=== PATIENT | male | born 1955 | race Caucasian/White ===

== ENCOUNTER 2019-08-26 18:48 | Emergency (ER) | payer MEDICARE, SELFPAY ==
--- NOTE | ~2019-08-26 | XR_ITS ---
XR knee RT 3V 08/26/2019 19:58 Indication: Recent right knee surgery on 08/06/2019. Right knee pain. Recent opening of surgical wound . Procedure: 3 views right knee Comparison: Comparison to multiple prior studies sequentially, with oldest reviewed study dated 02/03. Findings: There is a right total knee arthroplasty. Prosthesis appears to be well seated. No acute fr acture or traumatic malalignment. There is soft tissue gas in the suprapatellar and patellofemoral co mpartment regions. Extensive atherosclerosis. Impression: 1: No acute fracture. 2: Soft tissue gas suprapatellar and patellofemoral spaces, possibly postsurgical versus cellulitis i n the appropriate clinical setting. Clinically correlate. Reviewed, dictated and finalized at location A. Impression: 1: No acute fracture. 2: Soft tissue gas suprapatellar and patellofemoral spaces, possibly postsurgic al versus cellulitis in the appropriate clinical setting. Clinically correlate.
[2019-08-26 19:07] VITALS: BP 125/74; PULSE 108; RESP 20; TEMP 36.8; O2SAT 96
--- NOTE | 2019-08-26 19:20 | ED.EXTPRO ---
HPI - Extremity Problem General Chief complaint: Extremity Problem,Nontraumatic Stated complaint: rt knee pain Time Seen by Provider: 08/26/19 19:20 Source: patient Mode of arrival: ambulatory Limitations: no limitations History of Present Illness HPI Narrative: 63-year-old man comes in today complaining of pop and pain in his right knee on standing this evening. Patient states that who is dehisced right TKA wound is now even wider. It began to bleed after he felt a pop this morning. He states the pain is gotten better throughout the day and is able to bear some weight. He has some long-standing decreased sensation in his right distal extremity due to lumbar radiculopathy and states he has no new pain or numbness or weakness in his right lower leg. MD Complaint: joint paint Onset (ago): hour(s) (5) Pain Consistency: constant Location: right Quality: sharp Radiation: none Relieving factors: nothing Exacerbating factors: range of motion and weight bearing Associated symptoms: denies other symptoms Related Data Home Medications Medication Instructions Recorded Confirmed albuterol sulfate 90 mcg/actuation 1 puff INHALATION Q4H PRN 03/22/19 08/26/19 aerosol inhaler fluticasone furoate 100 1 inhalation INHALATION DAILY 03/22/19 08/26/19 mcg-vilanterol 25 mcg/dose inhalation powder prednisone 5 mg tablet 5 mg PO DAILY 03/22/19 08/26/19 Keflex 500 mg BYMOUTH BID 08/26/19 08/26/19 Allergies Allergy/AdvReac Type Severity Reaction Status Date / Time No Known Allergies Allergy Unverified 03/22/19 09:53 Review of Systems Constitutional: Constitutional: Denies chills, Denies fatigue, Denies fever(s) and Denies weakness ENT: Denies dysphagia, Denies nasal congestion and Denies sore throat Cardiovascular: Cardiovascular: Denies chest pain and Denies radiating jaw, neck or arm pain Respiratory: Respiratory: Denies cough, Denies dyspnea and Denies wheezing Gastrointestinal: Gastrointestinal: Denies abdominal pain and Denies vomiting Musculoskeletal: Musculoskeletal: Reports as per HPI and Reports arthralgias Integumentary/Breasts: Skin/Breast: Denies pruritus, Denies erythema and Denies rash Comments: Dehisced anterior TKA wound Neurologic: Denies vertigo, Denies dizziness, Denies syncope and Denies focal weakness Psychiatric: Psychiatric: Denies anxiety and Denies depression Hematologic/Lymphatic: Hematologic/Lymphatic: Denies easy bleeding and Denies easy bruising Allergic/Immunologic: Allergic/Immunologic: Denies lip swelling, Denies throat swelling, Denies tongue swelling and Denies wheezing [facility] Past Medical History Medical History (Updated 08/26/19 @ 20:44 by Sergio Angelo MD) Cigarette nicotine dependence COPD (chronic obstructive pulmonary disease) History of tetanus, diphtheria, and acellular pertussis booster vaccination (Tdap) (~02/19/18) Overweight Rheumatoid arthritis Surgical History Surgical History (Updated 08/26/19 @ 20:44 by Sergio Angelo MD) History of carpal tunnel surgery Bilateral 2017 History of cataract surgery Left Eye History of knee surgery Orthoscopic Left Knee. Righ Knee x2. History of left hip replacement 04-19-2018 Social History Social History Years smoked: 40 Smoking status: Current some day smoker Gender identity (if verbalized by the patient): Male Exam Const: General: healthy appearing and no acute distress Nutritional Appearance: obese Orientation/consciousness: patient oriented x3 HENMT: Head: normal to inspection Face and sinus: normal facial exam Mouth: Yes lip normal Eyes: Conjunctivae: conjunctivae normal Pupils: Equal, round and reactive pupils present EOM: EOMs intact bilaterally Resp: Effort & Inspection: normal respiratory effort and not labored Auscultation: clear to auscultation bilaterally, no rales, no rhonchi and no wheezes Cardio: Rate: regular
--- NOTE | 2019-08-26 20:29 | PC.NURSE ---
2006 STEFF CALLED AWAITING RETURN CALL . PT RESTING COMFORTABLE WATCHING TV. SLIGHT OZZING OF BRITE RED BLOOD NOTED FROM INCISION SITE.
[2019-08-26 21:00] VITALS: BP 108/74; PULSE 89; O2SAT 96
--- NOTE | 2019-08-26 21:04 | PC.NURSE ---
2032 DR WILLOUGHBY SPEAKS WITH DR. COUCH @ [facility]. WILL DISCHARGE HOME.
--- NOTE | 2019-08-26 21:06 | PC.NURSE ---
2049 NO ACTIVE BLEEDING DRESSING APPLYTED TO R. KNEE OF TELFA, GAUZE ,ABD. DRESSING AND WRAPPED WITH ADAN AND JASMINA BANDAGES. PT STATES FELLS GOOD.
== END 2019-08-26 21:02 | disposition home or self-care (01) ==
PROVIDERS: Emergency Provider Emergency Medicine
DX: S81.001A Unspecified open wound, right knee, initial encounter (principal); Z96.651 Presence of right artificial knee joint; F17.200 Nicotine dependence, unspecified, uncomplicated; J44.9 Chronic obstructive pulmonary disease, unspecified; M06.9 Rheumatoid arthritis, unspecified
CPT/HCPCS: 73562; 99282; 99283

== ENCOUNTER 2019-10-22 10:22 | Outpatient (CLI) | payer MEDICARE, SELFPAY ==
[2019-10-22 10:34] LABS: Hematocrit 29.5 % (40.0-54.0); Hemoglobin 9.4 g/dL (14.0-18.0); Mean Corpuscular HGB Conc 31.9 g/dL (32.0-36.0); Mean Corpuscular Hemoglobin 28.1 pg (27.0-31.0); Mean Corpuscular Volume 88.3 fL (78.0-102.0); Mean Platelet Volume 7.9 fl (8.7-11.0); Platelet Count Result 487 K/mm3 (150-420); Red Blood Count 3.34 M/mm3 (4.70-6.10); Red Cell Distribution Width 20.8 % (11.6-14.4); White Blood Count 11.9 K/mm3 (4.8-10.8)
[2019-10-22 10:44] LABS: Hemoglobin A1C 6.6 % (<5.7)
[2019-10-22 11:28] LABS: Alanine Aminotransferase 20 U/L (16-63); Albumin Level 2.9 g/dL (3.4-5.0); Alkaline Phosphatase 97 U/L (46-116); Anion Gap 12.3 mmol/L (7-16); Aspartate Amino Transferase 14 U/L (15-37); Bilirubin,Total 0.2 mg/dL (0.00-1.00); Blood Urea Nitrogen 10 mg/dL (7-18); Carbon Dioxide 29 mmol/L (21-32); Chloride 96 mmol/L (98-108); Cholesterol 146 mg/dL (0-200); Estimated Glomerular Filt Rate > 60; Glucose 103 mg/dL (70-99); HDL Direct 54 mg/dL (40-60); LDL Cholesterol Calculated 84 mg/dL (<130); Osmolality Calculated 275 mOsm/kg (285-295); Potassium 4.3 mmol/L (3.5-5.1); Sodium 133 mmol/L (136-145); Total Protein 7.6 g/dL (6.4-8.2); Triglycerides 39 mg/dL (0-150)
== END 2019-10-22 10:23 | disposition home or self-care (01) ==
LOC: CHSLAB 10:26
PROVIDERS: PCP Family Medicine; Visit Provider Family Medicine
DX: D64.9 Anemia, unspecified (principal); J44.9 Chronic obstructive pulmonary disease, unspecified; E11.9 Type 2 diabetes mellitus without complications
CPT/HCPCS: 36415; 80053; 80061; 83036; 85027

== ENCOUNTER 2019-11-07 10:06 | Outpatient (CLI) | payer MEDICARE, SELFPAY ==
--- NOTE | ~2019-11-07 | XR_ITS ---
EXAMINATION: XR knee RT 2V DATE: 11/07/2019 10:32 INDICATION: Right knee postop replacement within 6 months. Warm to touch. TECHNIQUE: 2 views of right knee were obtained. COMPARISON: Right knee radiographs 08/26/2019 FINDINGS: There is a total right knee arthroplasty in near-anatomic alignment with patellar resurfaci ng. No fracture. No periprosthetic lucency to suggest loosening or infection. There is a small knee j oint effusion. IMPRESSION: 1. Total right knee arthroplasty in near-anatomic alignment. 2. Small right knee joint effusion. Reviewed, dictated and finalized at location A.
[2019-11-07 10:25] LABS: Basophils Absolute Auto 0.07 K/mm3 (0.00-0.10); Basophils Percent Auto 0.6 % (0.0-1.0); Eosinophils Percent Auto 0.8 % (1.0-6.0); Hematocrit 30.4 % (40.0-54.0); Hemoglobin 9.5 g/dL (14.0-18.0); Immature Granulocyte Absolute 0.09 K/mm3 (0.00-0.00); Immature Granulocyte Percent A 0.8 % (0.0-0.0); Immature Platelet Fraction Pct 0.4 % (1.0-7.0); Lymphocytes Absolute Auto 1.13 K/mm3 (1.10-4.50); Lymphocytes Percent Auto 9.4 % (18.0-42.0); Mean Corpuscular HGB Conc 31.3 g/dL (32.0-36.0); Mean Corpuscular Hemoglobin 27.6 pg (27.0-31.0); Mean Corpuscular Volume 88.4 fL (78.0-102.0); Mean Platelet Volume 7.8 fl (8.7-11.0); Monocytes Absolute Auto 0.73 K/mm3 (0.10-0.90); Monocytes Percent Auto 6.1 % (2.0-11.0); Neutrophils Absolute Auto 9.9 K/mm3 (1.7-7.2); Neutrophils Percent Auto 82.3 % (50.0-70.0); Platelet Count Result 787 K/mm3 (150-420); Red Blood Count 3.44 M/mm3 (4.70-6.10); Red Cell Distribution Width 20.8 % (11.6-14.4)
[2019-11-07 11:09] LABS: Alanine Aminotransferase 16 U/L (16-63); Alkaline Phosphatase 99 U/L (46-116); Anion Gap 11.3 mmol/L (7-16); Aspartate Amino Transferase 14 U/L (15-37); Bilirubin,Total 0.4 mg/dL (0.00-1.00); Blood Urea Nitrogen 10 mg/dL (7-18); CRP 8.6 mg/dL (0.0-0.9); Calcium 8.7 mg/dL (8.5-10.1); Carbon Dioxide 28 mmol/L (21-32); Chloride 97 mmol/L (98-108); Estimated Glomerular Filt Rate > 60; Glucose 110 mg/dL (70-99); Osmolality Calculated 274 mOsm/kg (285-295); Potassium 4.3 mmol/L (3.5-5.1); Sodium 132 mmol/L (136-145); Total Protein 7.7 g/dL (6.4-8.2)
[2019-11-07 11:11] LABS: Ferritin 75 ng/mL (26-388); Iron 21 ug/dL (65-175); Percent Iron Saturation 7 % (12-57)
== END 2019-11-07 10:07 | disposition home or self-care (01) ==
PROVIDERS: PCP Family Medicine; Visit Provider Nurse Practitioner Family
DX: D64.9 Anemia, unspecified (principal); G89.18 Other acute postprocedural pain
CPT/HCPCS: 36415; 73560; 80053; 82728; 83540; 83550; 85025; 85055; 86140

== ENCOUNTER 2020-06-01 10:14 | Outpatient (CLI) | payer MEDICARE, SELFPAY ==
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
== END 2020-06-01 10:15 | disposition home or self-care (01) ==
LOC: CHSIMG 10:15
PROVIDERS: PCP Nurse Practitioner Family; Visit Provider Nurse Practitioner Family
DX: M25.562 Pain in left knee (principal); M54.16 Radiculopathy, lumbar region
CPT/HCPCS: 73562

== ENCOUNTER 2020-06-02 09:22 | Outpatient (CLI) | payer MEDICARE, SELFPAY ==
--- NOTE | ~2020-06-02 | CT_ITS ---
EXAMINATION: CT lumbar spine wo con DATE: 06/02/2020 09:54 INDICATION: Lumbar radiculopathy. TECHNIQUE: Computed tomography (CT) of the lumbar spine was performed without intravenous contrast. A utomated exposure control and iterative reconstruction technique were employed. The dose-length produ ct was 1457.85 mGy-cm. COMPARISON: Lumbar spine CT 06/19/2017 FINDINGS: The visualized portions of the lung bases demonstrate emphysema and chronic lung disease. T here is 6 degrees levocurvature of lumbar spine. There is 4 mm anterolisthesis of L1 on L2. There is mild kyphosis of lumbar spine. There are changes of anterior fusion procedures at L2-L3 and L4-L5 wit h interbody devices. There are changes of posterior fusion procedure from L2 to L5 with pedicle screw s at L2-L3. There are laminectomies at L4-L5. The spinous processes are resected at L2 and L3. There is a burst fracture of L4 with 8 mm distraction anteriorly. There is a fracture through the otherwise fused facet joint on the left at L3-L4. There is a fracture through the right L4 pedicle. There is s everely decreased disc height at L1-L2, L3-L4, and L5-S1 with endplate remodeling. The following disc levels are specifically discussed: L1-L2: The disc is bulging. There is severe bilateral facet joint osteoarthritis. There is moderate r ight and severe left neural foraminal stenosis. There is severe central canal stenosis. L2-L3: There is ankylosis of the facet joints with mild hypertrophy. There is no neural foraminal shara nosis. There is no central canal stenosis. L3-L4: The disc is bulging. There is ankylosis of the facet joints without hypertrophy. There is mild bilateral neural foraminal stenosis. There is mild central canal stenosis with posterior decompressi on. L4-L5: There is ankylosis of the left facet joint with moderate hypertrophy. The right L4 inferior fa cet is absent. There is mild right and moderate left neural foraminal stenosis. There is mild central canal stenosis with posterior decompression. L5-S1: The disc is bulging. There is severe bilateral facet joint osteoarthritis. There is moderate b ilateral neural foraminal stenosis. There is mild central canal stenosis. IMPRESSION: 1. Burst fracture of L4 vertebral body, fracture of the right L4 pedicle, and fracture through the ot herwise fused left L3-L4 facet joint. 2. Severe lumbar spondylosis. 3. Anterior fusion procedures at L2-L3 and L4-L5 and posterior fusion procedures from L2 to L5. Reviewed, dictated and finalized at location A. [place] OPERATIONS SPECIALIST IMPRESSION: 1. Burst fracture of L4 vertebral body, fracture of the right L4 pedicle, and f racture through the otherwise fused left L3-L4 facet joint. 2. Severe lumbar spondylosis. 3. Anterior fusion procedures at L2-L3 and L4-L5 and posterior fusion procedure s from L2 to L5.
== END 2020-06-02 09:23 | disposition home or self-care (01) ==
LOC: CHSIMG 09:23
PROVIDERS: PCP Nurse Practitioner Family; Visit Provider Nurse Practitioner Family
DX: M54.16 Radiculopathy, lumbar region (principal)
CPT/HCPCS: 72131

== ENCOUNTER 2020-09-02 10:31 | Outpatient (CLI) | payer MEDICARE, SELFPAY ==
--- NOTE | ~2020-09-02 | DEXA_ITS ---
Bone Density Report Name: Redd Foster Age: 64 Sex: Male Ethnicity: White Date of : 1955 Indication: prior fracture; asthma or emphysema; Referring Provider: Navdeep Delgado Study: Bone densitometry was performed. Exam Date: September 02, 2020 Accession number: [id number] Bone Density: Region BMD T-score Z-score Classification Femoral Neck (Right) 0.797 -1.0 0.0 Normal Total Hip (Right) 0.767 -1.8 -1.3 Osteopenia World Health Organization criteria for BMD impression classify patients as: Normal (T-score at or above -1.0), Osteopenia (T-score between -1.0 and -2.5), or Osteoporosis (T-score at or below -2.5). 10-year Fracture Risk: FRAX not reported because: Prior hip or vertebral fracture Clinical Information Provided by Patient: Have had a previous hip or vertebral fracture Has had a low trauma fracture Smokes Has the following medical conditions: Asthma or Emphysema Patient maximum height was 76 Drinks caffeinated beverages Impression: The patient has low bone mass, based on the Right Total Hip T-score. The patient has risk factors, including: smoking, previous fracture. Discussion: INCREASED RISK OF FRACTURE DUE TO HISTORY OF LOW TRAUMA FRACTURE. The patient's previous fracture puts the patient at high risk of a future fracture. In untreated patients, the risk of osteoporotic fracture increases approximately two-fold for each 1.0 SD decrease in T-score. Low bone density is not the only risk factor for fracture; also consider factors such as patient's age, frailty or poor health, risk of falling, risk of injury, previous osteoporotic fracture, family history of osteoporosis, cigarette smoking, low body weight, etc. Not everyone with a low trauma fracture has osteoporosis; osteomalacia and other metabolic bone disorders should also be considered. Patients who have osteoporosis should be evaluated for specific diseases and conditions (secondary causes) that may cause or contribute to bone loss and fracture risk. National Osteoporosis Foundation (NOF) recommends pharmacologic intervention for patients with a prior low trauma hip or vertebral fracture regardless of BMD T-score. The patient should follow a healthful lifestyle (good nutrition with adequate calcium and vitamin D, and appropriate weight-bearing exercise). Follow-Up: Consider a repeat BMD and Vertebral Fracture Assessment (VFA) exam in 2 years or sooner if medically necessary, to reassess this patient's status. Reported by: Dr. Marv Mock on 09/02/2020 11:00:00 AM. Reviewed, dictated and finalized at location A. [id number]
== END 2020-09-02 10:32 | disposition home or self-care (01) ==
LOC: CHSIMG 10:32
PROVIDERS: PCP Family Medicine; Visit Provider Family Medicine
DX: M81.0 Age-related osteoporosis without current pathological fracture (principal)
CPT/HCPCS: 77080

== ENCOUNTER 2021-04-28 09:08 | Outpatient (CLI) | payer MEDICARE, SELFPAY ==
[2021-04-28 09:52] LABS: Add Urine Microscopic? NO; Appearance Urine Clear (Clear); Bilirubin Urine Negative (Negative); Blood Urine Negative (Negative); Color Urine Light Yellow (Yellow); Glucose Urine UA Negative (Negative); Ketones Urine Negative (Negative); Leukocyte Esterase Ur Negative LEU/UL (Negative); Nitrate Urine Negative (Negative); Protein Urine Negative (Negative); Specific Grav Ur 1.015 (1.010-1.020); Urobilinogen Urine 0.2 mg/dL (0.2-1.0)
== END 2021-04-28 09:09 | disposition home or self-care (01) ==
LOC: CHSLAB 09:15
PROVIDERS: PCP Family Medicine
DX: N39.0 Urinary tract infection, site not specified (principal)
CPT/HCPCS: 81003

== ENCOUNTER 2021-07-02 10:08 | Outpatient (CLI) | payer MEDICARE, SELFPAY ==
--- NOTE | ~2021-07-02 | XR_ITS ---
XR foot LT min 3V DATE: 07/02/2021 11:16 INDICATION: Arthritis. Therapeutic drug monitoring. TECHNIQUE: 4 views COMPARISON: None FINDINGS: There is prominent plantar calcaneal enthesopathy without erosive change or periostitis. Os tibiale externum, normal variant. There is mild osteoarthritic change at the first metatarsophalangeal joint. No fracture or dislocation, periosteal reaction or bone destruction. IMPRESSION: Plantar calcaneal enthesopathy Mild osteoarthritis at first metatarsophalangeal joint Reviewed, dictated and finalized at location A. ASSING MANAGER
--- NOTE | ~2021-07-02 | XR_ITS ---
EXAMINATION: XR shoulder LT min 2V DATE: 07/02/2021 11:15 INDICATION: Arthritis. Therapeutic drug monitoring. TECHNIQUE: AP internally and externally rotated, AP oblique externally rotated and transscapular Y vi ews of the left shoulder were obtained. COMPARISON: None FINDINGS: Normal alignment. No fracture.Mild glenohumeral osteoarthritis with mild nonuniform joint space narr owing and small marginal osteophytes along the inferior humeral head and glenoid. Mild acromioclavicu lar osteoarthritis. And mild left apical pleural-parenchymal scarring. Soft tissues are unremarkable. IMPRESSION: Mild left glenohumeral and acromioclavicular osteoarthritis. Reviewed, dictated and finalized at location A. ENSATION PROGRAMS MANAGER
--- NOTE | ~2021-07-02 | XR_ITS ---
XR foot RT min 3V DATE: 07/02/2021 11:16 INDICATION: Right foot pain. Arthritis. Drug monitoring. TECHNIQUE: 4 views COMPARISON: None FINDINGS: There is prominent plantar and mild posterior calcaneal enthesopathy without erosive change or periostitis. There is mild osteoarthritis at the first tarsometatarsal and first metatarsophalangeal joints. Os tibiale externum, normal variant. No fracture or dislocation, periosteal reaction or bone destruction. IMPRESSION: Calcaneal enthesopathy Mild osteoarthritis at first tarsometatarsal and metatarsophalangeal joints Reviewed, dictated and finalized at location A. RADIOLOGIST
--- NOTE | ~2021-07-02 | XR_ITS ---
XR cervical spine 4-5V DATE: 07/02/2021 11:15 INDICATION: Neck pain TECHNIQUE: AP, open-mouth, odontoid, lateral, swimmer's and bilateral oblique views COMPARISON: 09/12/2013 cervical spine FINDINGS: Osteopenia. C1 and C2 are normally aligned and the odontoid process is intact. There is severe degenerative disc disease and mild retrolisthesis at C3-4. There is moderately severe degenerative disc disease at C4-5. There is severe degenerative disease at C5-6 and C6-7. There is prominent uncovertebral joint spurring in the mid and lower cervical spine as well as degene rative change at the apophyseal joints throughout the cervical spine, with corresponding encroachment upon the neural foramina bilaterally. Bilateral arterial calcifications in the region of the carotid bulbs and proximal internal carotid ar teries. IMPRESSION: Severe cervical spondylosis, including severe degenerative disease at C3-4 with mild retr olisthesis, moderately severe degenerative disc disease at C4-5 and severe degenerative disease at C5 -6, C6-7 Extensive encroachment on neural foramina by spurring at uncovertebral and apophyseal joints Reviewed, dictated and finalized at location A. CONTROL OFFICER IMPRESSION: Severe cervical spondylosis, including severe degenerative disease at C3-4 with mild retrolisthesis, moderately severe degenerative disc disease a t C4-5 and severe degenerative disease at C5-6, C6-7 Extensive encroachment on neural foramina by spurring at uncovertebral and apop hyseal joints
--- NOTE | ~2021-07-02 | XR_ITS ---
EXAMINATION: XR hand LT min 3V, XR wrist LT min 3V, XR wrist RT min 3V, XR hand RT min 3V DATE: 07/02/2021 11:15 INDICATION: EXAMINATION: XR hand LT min 3V, XR wrist LT min 3V DATE: 07/02/2021 11:15 INDICATION: Arthritis. Therapeutic drug monitoring. TECHNIQUE: 1. Posteroanterior, ulnar deviation, oblique, and lateral views of the left wrist were obtained. 2. Dorsal palmar, oblique and lateral views of the left hand were obtained. 3. Posteroanterior, ulnar deviation, oblique, and lateral views of the right wrist were obtained. 4. Dorsal palmar, oblique and lateral views of the right hand were obtained. COMPARISON: None. FINDINGS: Left hand and wrist: Alignment of the left hand and wrist is normal. No fracture identified. Minimal to mild polyarticula r osteoarthritis characterized by mild nonuniform joint space narrowing and/or tiny marginal osteophy orlin with typical distribution at the radial aspect of the carpus and involving several metacarpophala ngeal and interphalangeal joints of the distal predominance. No erosions to suggest inflammatory arth ritis. No focal soft tissue swelling. Right hand and wrist: Old fracture of the distal right radial metaphysis which is healed with approximately 5 mm palmar dis placement. Small amount of corticated heterotopic ossification along the tip of the ulnar styloid pro cess likely sequela of chronic injury. Alignment of the right hand and wrist is otherwise normal. Add itional old healed fracture of the right second distal phalanx. No acute fracture identified. Moderat e to severe likely secondary osteoarthritis at the second distal interphalangeal joint. Otherwise rel atively symmetric pattern of minimal to mild polyarticular osteoarthritis as in the left hand at the radial aspect of the carpus and multiple metacarpophalangeal and remaining interphalangeal joints. No erosions to suggest an inflammatory arthritis. No focal soft tissue swelling. IMPRESSION: 1. Old healed fracture at the right second distal phalanx with moderate to severe secondary osteoarth ritis at the right second distal interphalangeal joint. 2. Otherwise typical pattern of minimal to mild polyarticular osteoarthritis at the bilateral hands. 3. Additional old post matter changes at the right wrist with healed distal right radial fracture and small amount of heterotopic ossification at the ulnar styloid process. Reviewed, dictated and finalized at location A. UDER TENDER IMPRESSION: 1. Old healed fracture at the right second distal phalanx with moderate to sarabjit re secondary osteoarthritis at the right second distal interphalangeal joint. 2. Otherwise typical pattern of minimal to mild polyarticular osteoarthritis at the bilateral hands. 3. Additional old post matter changes at the right wrist with healed distal rig ht radial fracture and small amount of heterotopic ossification at the ulnar st yloid process. IMPRESSION: 1. Old healed fracture at the right second distal phalanx with moderate to sarabjit re secondary osteoarthritis at the right second distal interphalangeal joint. 2. Otherwise typical pattern of minimal to mild polyarticular osteoarthritis at the bilateral hands. 3. Additional old post matter changes at the right wrist with healed distal rig ht radial fracture and small amount of heterotopic ossification at the ulnar st yloid process.
--- NOTE | ~2021-07-02 | XR_ITS ---
EXAMINATION: XR shoulder RT min 2V DATE: 07/02/2021 11:15 INDICATION: Arthritis. Therapeutic drug monitoring. TECHNIQUE: AP internally and externally rotated, AP oblique externally rotated and transscapular Y vi ews of the right shoulder were obtained. COMPARISON: None FINDINGS: Normal alignment. No fracture.Mild glenohumeral osteoarthritis with mild nonuniform joint space narr owing and small marginal osteophytes along the inferior glenoid and humeral head. Mild acromioclavicu lar osteoarthritis with additional inferiorly directed osteophytes. Streaky and coarse reticular opac ities at the periphery of the right mid to upper lung zone most suggestive of chronic interstitial aggie ng disease. Soft tissues are unremarkable. IMPRESSION: 1. Mild right glenohumeral and acromioclavicular osteoarthritis. 2. Peripheral reticular opacities at the right mid to upper lung most likely chronic interstitial belle g disease with differential including pulmonary edema, pneumonia or atelectasis. Reviewed, dictated and finalized at location A. RNATIONAL SPECIALIST IMPRESSION: 1. Mild right glenohumeral and acromioclavicular osteoarthritis. 2. Peripheral reticular opacities at the right mid to upper lung most likely ch ronic interstitial lung disease with differential including pulmonary edema, pn eumonia or atelectasis.
[2021-07-02 10:36] LABS: Basophils Absolute Auto 0.04 K/mm3 (0.00-0.10); Basophils Percent Auto 0.5 % (0.0-1.0); Eosinophils Absolute Auto 0.17 K/mm3 (0.02-0.50); Hemoglobin 8.3 g/dL (14.0-18.0); Immature Granulocyte Absolute 0.03 K/mm3 (0.00-0.00); Immature Granulocyte Percent A 0.4 % (0.0-0.0); Lymphocytes Absolute Auto 0.82 K/mm3 (1.10-4.50); Lymphocytes Percent Auto 9.7 % (18.0-42.0); Mean Corpuscular HGB Conc 28.6 g/dL (32.0-36.0); Mean Corpuscular Hemoglobin 23.6 pg (27.0-31.0); Mean Corpuscular Volume 82.4 fL (78.0-102.0); Mean Platelet Volume 8.5 fl (8.7-11.0); Monocytes Absolute Auto 0.36 K/mm3 (0.10-0.90); Monocytes Percent Auto 4.3 % (2.0-11.0); Neutrophils Percent Auto 83.1 % (50.0-70.0); Platelet Count Result 463 K/mm3 (150-420); Red Blood Count 3.52 M/mm3 (4.70-6.10); Red Cell Distribution Width 19.7 % (11.6-14.4); White Blood Count 8.4 K/mm3 (4.8-10.8)
[2021-07-02 11:14] LABS: RFT Charge Test YES; Rheumatoid Factor Screen Positive (Negative)
[2021-07-02 11:17] LABS: Alanine Aminotransferase 17 U/L (16-63); Albumin Level 3.4 g/dL (3.4-5.0); Alkaline Phosphatase 156 U/L (46-116); Anion Gap 11 mmol/L (8-16); Aspartate Amino Transferase 14 U/L (15-37); Bilirubin,Total 0.5 mg/dL (0.00-1.00); Blood Urea Nitrogen 15 mg/dL (7-18); CRP 6.7 mg/dL (0.0-0.9); Calcium 8.6 mg/dL (8.5-10.1); Carbon Dioxide 25 mmol/L (21-32); Chloride 98 mmol/L (98-108); Estimated Glomerular Filt Rate > 60; Glucose 89 mg/dL (70-99); Osmolality Calculated 277 mOsm/kg (285-295); Potassium 4.4 mmol/L (3.5-5.1); Sodium 134 mmol/L (136-145); Total Protein 7.9 g/dL (6.4-8.2)
[2021-07-02 11:20] LABS: Add Urine Microscopic? NO; Appearance Urine Clear (Clear); Bilirubin Urine Negative (Negative); Blood Urine Negative (Negative); Color Urine Yellow (Yellow); Glucose Urine UA Negative (Negative); Ketones Urine Negative (Negative); Leukocyte Esterase Ur Negative (Negative); Nitrate Urine Negative (Negative); Protein Urine Negative (Negative); Specific Grav Ur 1.025 (1.010-1.020); Urobilinogen Urine 0.2 mg/dL (0.2-1.0)
[2021-07-02 11:40] LABS: Erythrocyte Sedimentation Rate 54 mm/hr (0-20)
[2021-07-05 14:12] LABS: Hepatitis B Core Ab Total Nonreactive (Nonreactive)
[2021-07-05 14:14] LABS: Hepatitis B Surface Antibody Nonreactive (Nonreactive); Hepatitis B Surface Antigen Nonreactive (Nonreactive); Hepatitis C Signal to Cutoff 0.04 ratio (<1.00); Hepatitis C Virus Antibody Nonreactive (Nonreactive)
[2021-07-06 18:57] LABS: NIL 0.01 IU/mL; Quantiferon TB Plus, 1T NEGATIVE (NEGATIVE); TB1-NIL 0.01 IU/mL
== END 2021-07-02 10:09 | disposition home or self-care (01) ==
PROVIDERS: PCP Family Medicine
DX: M19.90 Unspecified osteoarthritis, unspecified site (principal); Z51.81 Encounter for therapeutic drug level monitoring
CPT/HCPCS: 36415; 72050; 73030; 73110; 73130; 73630; 80053; 81003; 85025; 85652; 86140; 86430; 86431; 86480; 86704; 86706

== ENCOUNTER 2021-07-17 12:16 | Outpatient (NON) | payer MEDICARE, SELFPAY | END 2021-07-17 12:17 | disposition home or self-care (01) | LOC: CHSLAB 12:20 | DX: M19.90 Unspecified osteoarthritis, unspecified site (principal) | CPT/HCPCS: 36415 ==

== ENCOUNTER 2021-09-17 09:51 | Outpatient (CLI) | payer MEDICARE, SELFPAY ==
[2021-09-17 10:12] LABS: Basophils Absolute Auto 0.06 K/mm3 (0.00-0.10); Basophils Percent Auto 1.2 % (0.0-1.0); Eosinophils Absolute Auto 0.44 K/mm3 (0.02-0.50); Eosinophils Percent Auto 8.5 % (1.0-6.0); Hematocrit 27.2 % (40.0-54.0); Hemoglobin 8.4 g/dL (14.0-18.0); Immature Granulocyte Absolute 0.02 K/mm3 (0.00-0.00); Immature Granulocyte Percent A 0.4 % (0.0-0.0); Immature Platelet Fraction Pct 1.2 % (1.0-7.0); Lymphocytes Absolute Auto 1.12 K/mm3 (1.10-4.50); Lymphocytes Percent Auto 21.5 % (18.0-42.0); Mean Corpuscular HGB Conc 30.9 g/dL (32.0-36.0); Mean Corpuscular Hemoglobin 24.3 pg (27.0-31.0); Mean Corpuscular Volume 78.6 fL (78.0-102.0); Mean Platelet Volume 8.1 fl (8.7-11.0); Monocytes Absolute Auto 0.46 K/mm3 (0.10-0.90); Monocytes Percent Auto 8.8 % (2.0-11.0); Neutrophils Absolute Auto 3.1 K/mm3 (1.7-7.2); Neutrophils Percent Auto 59.6 % (50.0-70.0); Platelet Count Result 713 K/mm3 (150-420); Red Blood Count 3.46 M/mm3 (4.70-6.10); Red Cell Distribution Width 19.5 % (11.6-14.4); White Blood Count 5.2 K/mm3 (4.8-10.8)
[2021-09-17 10:48] LABS: Alkaline Phosphatase 95 U/L (46-116); Aspartate Amino Transferase 15 U/L (15-37); Bilirubin Direct 0.1 mg/dL (0-0.2); Bilirubin,Total 0.3 mg/dL (0.00-1.00); Estimated Glomerular Filt Rate > 60
[2021-09-17 11:02] LABS: Alanine Aminotransferase 16 U/L (16-63)
== END 2021-09-17 09:52 | disposition home or self-care (01) ==
LOC: CHSLAB 09:57
PROVIDERS: PCP Family Medicine
DX: M06.9 Rheumatoid arthritis, unspecified (principal)
CPT/HCPCS: 36415; 80076; 82565; 85025; 85055

== ENCOUNTER 2021-10-05 09:47 | Outpatient (CLI) | payer MEDICARE, SELFPAY ==
[2021-10-05 10:12] LABS: Basophils Absolute Auto 0.07 K/mm3 (0.00-0.10); Basophils Percent Auto 1.2 % (0.0-1.0); Eosinophils Absolute Auto 0.25 K/mm3 (0.02-0.50); Eosinophils Percent Auto 4.1 % (1.0-6.0); Hematocrit 27.3 % (40.0-54.0); Hemoglobin 8.6 g/dL (14.0-18.0); Immature Granulocyte Absolute 0.03 K/mm3 (0.00-0.00); Immature Granulocyte Percent A 0.5 % (0.0-0.0); Lymphocytes Absolute Auto 0.81 K/mm3 (1.10-4.50); Lymphocytes Percent Auto 13.4 % (18.0-42.0); Mean Corpuscular HGB Conc 31.5 g/dL (32.0-36.0); Mean Corpuscular Hemoglobin 24.9 pg (27.0-31.0); Mean Corpuscular Volume 79.1 fL (78.0-102.0); Mean Platelet Volume 7.9 fl (8.7-11.0); Monocytes Absolute Auto 0.49 K/mm3 (0.10-0.90); Monocytes Percent Auto 8.1 % (2.0-11.0); Neutrophils Absolute Auto 4.4 K/mm3 (1.7-7.2); Neutrophils Percent Auto 72.7 % (50.0-70.0); Platelet Count Result 454 K/mm3 (150-420); Red Blood Count 3.45 M/mm3 (4.70-6.10)
[2021-10-05 10:28] LABS: Albumin Level 3.2 g/dL (3.4-5.0); Alkaline Phosphatase 100 U/L (46-116); Aspartate Amino Transferase 13 U/L (15-37); Bilirubin Direct 0.1 mg/dL (0-0.2); Bilirubin,Total 0.3 mg/dL (0.00-1.00); Estimated Glomerular Filt Rate > 60
[2021-10-05 10:40] LABS: Alanine Aminotransferase < 6 U/L (16-63)
== END 2021-10-05 09:48 | disposition home or self-care (01) ==
LOC: CHSLAB 09:55
PROVIDERS: PCP Family Medicine
DX: M06.9 Rheumatoid arthritis, unspecified (principal)
CPT/HCPCS: 36415; 80076; 82565; 85025

== ENCOUNTER 2021-10-25 10:59 | Outpatient (RCR) | payer MEDICARE, SELFPAY ==
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
--- NOTE | 2022-02-22 10:20 | PCPTNOTE ---
Keny has not been back to therapy since November. as of this date, he will be dc'd from skilled PT services due to lack of return to finish POC. OCHOA
== END 2021-12-08 23:59 | disposition home or self-care (01) ==
LOC: CHSPT 10:59
DX: Z96.651 Presence of right artificial knee joint (principal)
CPT/HCPCS: 97110; 97112; 97140; 97162; 97530

== ENCOUNTER 2021-11-16 12:03 | Outpatient (CLI) | payer MEDICARE, SELFPAY ==
[2021-11-16 12:24] LABS: Basophils Absolute Auto 0.07 K/mm3 (0.00-0.10); Basophils Percent Auto 0.9 % (0.0-1.0); Eosinophils Absolute Auto 0.23 K/mm3 (0.02-0.50); Eosinophils Percent Auto 2.9 % (1.0-6.0); Hematocrit 29.1 % (37.0-46.0); Immature Granulocyte Absolute 0.03 K/mm3 (0.00-0.00); Immature Granulocyte Percent A 0.4 % (0.0-0.0); Immature Platelet Fraction Pct 0.9 % (1.0-7.0); Immature Reticulocyte Fraction 26.4 % (2.0-16.52); Lymphocytes Absolute Auto 0.97 K/mm3 (1.10-4.50); Lymphocytes Percent Auto 12.2 % (18.0-42.0); Mean Corpuscular HGB Conc 30.9 g/dL (32.0-36.0); Mean Corpuscular Hemoglobin 25.1 pg (27.0-31.0); Mean Corpuscular Volume 81.1 fL (78.0-102.0); Mean Platelet Volume 7.7 fl (8.7-11.0); Monocytes Absolute Auto 0.47 K/mm3 (0.10-0.90); Monocytes Percent Auto 5.9 % (2.0-11.0); Neutrophils Absolute Auto 6.2 K/mm3 (1.7-7.2); Neutrophils Percent Auto 77.7 % (50.0-70.0); Platelet Count Result 549 K/mm3 (150-420); Red Blood Count 3.59 M/mm3 (4.70-6.10); Red Cell Distribution Width 20.1 % (11.6-14.4); Reticulocyte Hemoglobin Conten 31.4 pg (28.0-35.0); Reticulocyte Percent 1.25 % (0.50-1.50); Reticulocytes Absolute 0.04 M/mm3 (0.02-0.1)
[2021-11-16 13:30] LABS: Alanine Aminotransferase 13 U/L (16-63); Albumin Level 3.6 g/dL (3.4-5.0); Alkaline Phosphatase 126 U/L (46-116); Aspartate Amino Transferase 15 U/L (15-37); Bilirubin Direct 0.1 mg/dL (0-0.2); Bilirubin,Total 0.4 mg/dL (0.00-1.00); Estimated Glomerular Filt Rate > 60; Iron 25 ug/dL (65-175); Total Protein 7.9 g/dL (6.4-8.2); Vitamin B12 337 pg/mL (193-986)
[2021-11-21 14:16] LABS: Red Blood Cell Folate 956 ng/mL RBC (>280)
== END 2021-11-16 12:04 | disposition home or self-care (01) ==
LOC: CHSLAB 12:06
PROVIDERS: PCP Nurse Practitioner Family; Visit Provider Nurse Practitioner Family
DX: M06.9 Rheumatoid arthritis, unspecified (principal); D64.9 Anemia, unspecified
CPT/HCPCS: 36415; 80076; 82565; 82607; 82747; 83540; 85025; 85046; 85055

== ENCOUNTER 2021-12-06 10:41 | Outpatient (CLI) | payer MEDICARE, SELFPAY ==
--- NOTE | ~2021-12-06 | XR_ITS ---
EXAMINATION: XR knee RT min 4V DATE: 12/06/2021 11:36 INDICATION: New lateral sided right knee pain TECHNIQUE: Anteroposterior, oblique, sunrise and crosstable lateral views of the right knee were obta ined COMPARISON: 11/07/2019 FINDINGS: Interval revision of the previous right total knee arthroplasty with a new likely constrained right t otal knee arthroplasty with longstem femoral and tibial components. There are cerclage wires about th e distal right femoral metadiaphyseal region. There is also periosteal reaction along the distal righ t femoral diaphysis and metaphyseal region. The patella is dislocated laterally positioned along the lateral margin of the lateral condylar portion of the femoral component. The patella is partially obs cured by the femoral component but on the sunrise projection there is a mildly displaced sagittally o riented fracture along the lateral aspect of the patella with 4 mm lucent fracture gap. IMPRESSION: 1. Mildly displaced sagittally oriented fracture involving the lateral aspect of the laterally disloc ated patella. 2. Revision right total knee arthroplasty. Reviewed, dictated and finalized at location A. IMPRESSION: 1. Mildly displaced sagittally oriented fracture involving the lateral aspect o f the laterally dislocated patella. 2. Revision right total knee arthroplasty.
== END 2021-12-06 10:42 | disposition home or self-care (01) ==
LOC: CHSIMG 10:47
PROVIDERS: PCP Family Medicine
DX: Z47.1 Aftercare following joint replacement surgery (principal); Z96.651 Presence of right artificial knee joint
CPT/HCPCS: 73564

== ENCOUNTER 2022-03-11 12:39 | Outpatient (CLI) | payer MEDICARE, SELFPAY ==
[2022-03-11 12:51] LABS: Basophils Absolute Auto 0.06 K/mm3 (0.00-0.10); Basophils Percent Auto 0.8 % (0.0-1.0); Eosinophils Absolute Auto 0.24 K/mm3 (0.02-0.50); Eosinophils Percent Auto 3.4 % (1.0-6.0); Hematocrit 33.3 % (37.0-46.0); Hemoglobin 10.9 g/dL (12.4-15.3); Immature Granulocyte Absolute 0.03 K/mm3 (0.00-0.00); Immature Granulocyte Percent A 0.4 % (0.0-0.0); Lymphocytes Absolute Auto 1.14 K/mm3 (1.10-4.50); Mean Corpuscular HGB Conc 32.7 g/dL (32.0-36.0); Mean Corpuscular Hemoglobin 30.4 pg (27.0-31.0); Mean Platelet Volume 7.7 fl (8.7-11.0); Monocytes Absolute Auto 0.49 K/mm3 (0.10-0.90); Monocytes Percent Auto 6.9 % (2.0-11.0); Neutrophils Absolute Auto 5.2 K/mm3 (1.7-7.2); Neutrophils Percent Auto 72.5 % (50.0-70.0); Platelet Count Result 403 K/mm3 (150-420); Red Blood Count 3.58 M/mm3 (4.70-6.10); Red Cell Distribution Width 16.1 % (11.6-14.4); White Blood Count 7.1 K/mm3 (4.8-10.8)
[2022-03-11 13:25] LABS: Alanine Aminotransferase 16 U/L (16-63); Albumin Level 3.4 g/dL (3.4-5.0); Alkaline Phosphatase 123 U/L (46-116); Anion Gap 7 mmol/L (8-16); Aspartate Amino Transferase 18 U/L (15-37); Bilirubin,Total 0.3 mg/dL (0.00-1.00); Blood Urea Nitrogen 10 mg/dL (7-18); Carbon Dioxide 29 mmol/L (21-32); Chloride 95 mmol/L (98-108); Estimated Glomerular Filt Rate > 60; Glucose 94 mg/dL (70-99); Osmolality Calculated 271 mOsm/kg (285-295); Potassium 4.4 mmol/L (3.5-5.1); Sodium 131 mmol/L (136-145); Total Protein 7.8 g/dL (6.4-8.2)
[2022-03-11 13:32] LABS: Calcium 8.8 mg/dL (8.5-10.1)
== END 2022-03-11 12:40 | disposition home or self-care (01) ==
LOC: CHSLAB 12:42
PROVIDERS: PCP Internal Medicine; Visit Provider Internal Medicine Rheumatology
DX: M06.9 Rheumatoid arthritis, unspecified (principal)
CPT/HCPCS: 36415; 80053; 85025

== ENCOUNTER 2022-06-23 08:51 | Outpatient (CLI) | payer MEDICARE, SELFPAY ==
[2022-06-23 09:10] LABS: Basophils Absolute Auto 0.07 K/mm3 (0.00-0.10); Basophils Percent Auto 1.3 % (0.0-1.0); Eosinophils Absolute Auto 0.17 K/mm3 (0.02-0.50); Hematocrit 35.5 % (37.0-46.0); Hemoglobin 11.4 g/dL (12.4-15.3); Immature Granulocyte Absolute 0.02 K/mm3 (0.00-0.00); Immature Granulocyte Percent A 0.4 % (0.0-0.0); Lymphocytes Absolute Auto 0.85 K/mm3 (1.10-4.50); Lymphocytes Percent Auto 15.2 % (18.0-42.0); Mean Corpuscular HGB Conc 32.1 g/dL (32.0-36.0); Mean Corpuscular Hemoglobin 29.9 pg (27.0-31.0); Mean Corpuscular Volume 93.2 fL (78.0-102.0); Mean Platelet Volume 8.2 fl (8.7-11.0); Monocytes Absolute Auto 0.47 K/mm3 (0.10-0.90); Monocytes Percent Auto 8.4 % (2.0-11.0); Neutrophils Percent Auto 71.7 % (50.0-70.0); Platelet Count Result 365 K/mm3 (150-420); Red Blood Count 3.81 M/mm3 (4.70-6.10); Red Cell Distribution Width 15.8 % (11.6-14.4); White Blood Count 5.6 K/mm3 (4.8-10.8)
[2022-06-23 10:10] LABS: Alanine Aminotransferase 12 U/L (16-63); Albumin Level 3.3 g/dL (3.4-5.0); Alkaline Phosphatase 125 U/L (46-116); Anion Gap 7 mmol/L (8-16); Aspartate Amino Transferase 14 U/L (15-37); Bilirubin,Total 0.4 mg/dL (0.00-1.00); Blood Urea Nitrogen 10 mg/dL (7-18); Calcium 8.6 mg/dL (8.5-10.1); Carbon Dioxide 29 mmol/L (21-32); Chloride 94 mmol/L (98-108); Estimated Glomerular Filt Rate > 60; Glucose 96 mg/dL (70-99); Osmolality Calculated 269 mOsm/kg (285-295); Potassium 4.6 mmol/L (3.5-5.1); Sodium 130 mmol/L (136-145); Total Protein 7.6 g/dL (6.4-8.2)
== END 2022-06-23 08:52 | disposition home or self-care (01) ==
LOC: CHSLAB 08:55
PROVIDERS: PCP Family Medicine
DX: M06.9 Rheumatoid arthritis, unspecified (principal); Z51.81 Encounter for therapeutic drug level monitoring
CPT/HCPCS: 36415; 80053; 85025